=== PATIENT | male | born 1960 | race Caucasian/White ===

== ENCOUNTER → 2017-04-03 | Outpatient (CLI) | payer BC ==
[~2017-04-03] MED LIST: ASPI-621 PO; CARV6.2512 PO; FURO40TA6 PO; LEVO25TA4 PO; LISI2.5T PO; RIVA15TA PO; VALS160T3 PO
== END | disposition home or self-care (01) ==
LOC: RAD 16:39
PROVIDERS: ATTEND Nurse Practitioner Primary Care
DX: M51.36 Other intervertebral disc degeneration, lumbar region (principal); M48.06 Spinal stenosis, lumbar region
CPT/HCPCS: 72110

== ENCOUNTER 2017-08-13 20:47 | Emergency (ER) | payer BC, OTHER ==
[~2017-08-13] VITALS: Ht 170.2 cm; Wt 100.0 kg
[2017-08-13 20:55] VITALS: BP 118/81
[2017-08-13] MEDS ORDERED: HYDROcodone/APAP 5/325 TABLET ONE (21:42)
[2017-08-13] MEDS ORDERED: INDOMETHACIN 50 MG CAPSULE ONE (21:52)
[2017-08-13] MEDS ORDERED: COLCHICINE 0.6 MG TABLET PO ONE (22:00)
[2017-08-13] MEDS ORDERED: HYDROcodone/APAP 5/325 TABLET PO ONE (22:00)
[2017-08-13] MEDS ORDERED: INDOMETHACIN 50 MG CAPSULE PO ONE (22:00)
== END 2017-08-13 23:26 | disposition home or self-care (01) ==
LOC: ED 22:09
DX: S99.921A Unspecified injury of right foot, initial encounter (principal); M10.9 Gout, unspecified; I50.9 Heart failure, unspecified; X58.XXXA Exposure to other specified factors, initial encounter; Y93.89 Activity, other specified; Y92.009 Unspecified place in unspecified non-institutional (private) residence as the place of occurrence of the external cause; Y99.8 Other external cause status
CPT/HCPCS: 99284; J7512

== ENCOUNTER 2019-12-21 13:45 | Outpatient (CLI) | payer OTHER ==
[~2019-12-21 13:45] MED LIST changes: -ASPI-621 PO; +ASPI81TA45 PO
== END 2019-12-21 23:59 | disposition home or self-care (01) ==
LOC: CVU 13:45
PROVIDERS: ATTEND Internal Medicine Cardiovascular Disease
DX: I06.1 Rheumatic aortic insufficiency (principal); E78.5 Hyperlipidemia, unspecified; I26.99 Other pulmonary embolism without acute cor pulmonale; I06.8 Other rheumatic aortic valve diseases; I10 Essential (primary) hypertension; I42.0 Dilated cardiomyopathy
CPT/HCPCS: 93306

== ENCOUNTER → 2020-01-16 | Outpatient (CLI) | payer OTHER ==
[~2020-01-16] MED LIST changes: +REGADENOSON 0.4 MG/5 ML SYRINGE ONE
== END | disposition home or self-care (01) ==
LOC: CFH 08:05
PROVIDERS: ATTEND Internal Medicine Cardiovascular Disease
DX: I42.0 Dilated cardiomyopathy (principal); R07.9 Chest pain, unspecified; I10 Essential (primary) hypertension
CPT/HCPCS: 78452; 93017; A9502; J2785